=== PATIENT | male | born 1950 | race Caucasian/White ===

== ENCOUNTER 2018-12-24 14:47 | Outpatient (CLI) | payer MEDICARE, BC ==
[2018-12-24 15:29] LABS: BASOPHILS % (AUTO) 0.3 % (0-1); EOSINOPHILS % (AUTO) 0.2 % (0-6); HEMATOCRIT 49.7 % (42.0-52.0); HEMOGLOBIN 16.8 g/dl (14.0-17.9); LYMPHOCYTES # (AUTO) 0.4 X10'3 (1.1-4.8); LYMPHOCYTES % (AUTO) 6.2 % (21-51); MEAN CORPUSCULAR HGB CONC 33.8 g/dL (33.0-36.5); MEAN CORPUSCULAR VOLUME 94.6 FL (78-98); MEAN PLATELET VOLUME 7.2 FL (7.4-10.4); MONOCYTES # (AUTO) 0.1 X10'3 (0-0.9); MONOCYTES % (AUTO) 1.8 % (2-12); NEUTROPHILS # (AUTO) 6.2 X10'3 (1.8-7.7); NEUTROPHILS % (AUTO) 91.5 % (42-75); PLATELET COUNT 201 X10'3 (140-440); RED BLOOD COUNT 5.25 X10'6 (4.70-6.10); RED CELL DISTRIBUTION WIDTH 14.2 % (11.5-14.5); WHITE BLOOD COUNT 6.8 X10'3 (4.5-11.0)
[2018-12-24 15:38] LABS: ALANINE AMINOTRANSFERASE 28 U/L (12-78); ALBUMIN 3.9 G/DL (3.4-5.0); ALKALINE PHOSPHATASE 71 IU/L (46-116); ANION GAP 5 (8-16); ASPARTATE AMINO TRANSFERASE 12 U/L (10-37); BILIRUBIN,TOTAL 0.5 MG/DL (0.1-1.0); BLOOD UREA NITROGEN 13 MG/DL (7-18); BUN/CREATININE RATIO 12.1 (5.4-32.0); CHLORIDE 100 MMOL/L (99-107); CREATININE 1.07 MG/DL (0.60-1.10); GLUCOSE 160 MG/DL (70-104); PARTIAL THROMBOPLASTIN TIME 31 SECONDS (22-32); POTASSIUM 4.4 MMOL/L (3.5-5.1); SODIUM 133 MMOL/L (135-145); TOTAL PROTEIN 7.7 G/DL (6.4-8.2); eGFR 69 ML/MIN
[2018-12-24 18:16] LABS: PLATELET FUNCTION (ADP) 120 SECONDS (63-104)
== END 2018-12-24 23:59 | disposition home or self-care (01) ==
LOC: LAB 14:47
PROVIDERS: ATTEND Otolaryngology
DX: D69.1 Qualitative platelet defects (principal)
CPT/HCPCS: 36415; 80053; 85025; 85576; 85610; 85730

== ENCOUNTER 2019-04-24 08:52 | Outpatient (CLI) | payer BC, MEDICARE ==
[2019-04-24 09:27] LABS: BASOPHILS % (AUTO) 0.6 % (0-1); EOSINOPHILS # (AUTO) 0.1 X10'3 (0-0.9); EOSINOPHILS % (AUTO) 1.7 % (0-6); HEMATOCRIT 49.5 % (42.0-52.0); HEMOGLOBIN 16.9 g/dl (14.0-17.9); LYMPHOCYTES # (AUTO) 1.3 X10'3 (1.1-4.8); LYMPHOCYTES % (AUTO) 22.9 % (21-51); MEAN CORPUSCULAR HEMOGLOBIN 32.7 PG (27.0-31.0); MEAN CORPUSCULAR HGB CONC 34.1 g/dL (33.0-36.5); MEAN CORPUSCULAR VOLUME 95.9 FL (78-98); MONOCYTES # (AUTO) 0.6 X10'3 (0-0.9); MONOCYTES % (AUTO) 10.4 % (2-12); NEUTROPHILS # (AUTO) 3.6 X10'3 (1.8-7.7); NEUTROPHILS % (AUTO) 64.4 % (42-75); PLATELET COUNT 185 X10'3 (140-440); RED BLOOD COUNT 5.16 X10'6 (4.70-6.10); RED CELL DISTRIBUTION WIDTH 13.7 % (11.5-14.5); WHITE BLOOD COUNT 5.5 X10'3 (4.5-11.0)
[2019-04-24 09:39] LABS: PARTIAL THROMBOPLASTIN TIME 28 SECONDS (22-32)
[2019-04-24 09:40] LABS: ALANINE AMINOTRANSFERASE 28 U/L (12-78); ALBUMIN 3.8 G/DL (3.4-5.0); ALBUMIN/GLOBULIN RATIO 1.1 (1.1-1.5); ALKALINE PHOSPHATASE 55 IU/L (46-116); ANION GAP 9 (8-16); ASPARTATE AMINO TRANSFERASE 11 U/L (10-37); BILIRUBIN,TOTAL 0.5 MG/DL (0.1-1.0); BLOOD UREA NITROGEN 11 MG/DL (7-18); BUN/CREATININE RATIO 11.5 (5.4-32.0); CALCIUM 8.7 MG/DL (8.5-10.1); CHLORIDE 107 MMOL/L (99-107); CREATININE 0.96 MG/DL (0.60-1.10); GLUCOSE 102 MG/DL (70-104); POTASSIUM 4.5 MMOL/L (3.5-5.1); SODIUM 143 MMOL/L (135-145); TOTAL PROTEIN 7.2 G/DL (6.4-8.2); eGFR 78 ML/MIN
== END 2019-04-24 23:59 | disposition home or self-care (01) ==
LOC: LAB 08:52
PROVIDERS: ATTEND Otolaryngology
DX: D69.1 Qualitative platelet defects (principal)
CPT/HCPCS: 36415; 80053; 85025; 85576; 85610; 85730

== ENCOUNTER 2019-05-13 08:28 | Day surgery (SDC) | payer BC, MEDICARE ==
[~2019-05-13] VITALS: Ht 188 cm; Wt 90.7 kg
[2019-05-13] VITALS (12 sets, daily range): BP systolic 114–137; BP diastolic 68–86
[~2019-05-13 08:28] MED LIST: BUPIVAcaine/PF 2.5 mg/ml (0.25%) 30ml vial ONE; ceFAZolin 1000mg inj ONE
[2019-05-13] MEDS ORDERED: labetalol 20mg/4ml (5mg/ml) syringe IV PRN (09:20)
[2019-05-13] MEDS ORDERED: ringers solution, lacted 1,000 ML IV SCH (09:20)
[2019-05-13] MEDS ORDERED: fentaNYL/PF 50MCG/1 ML 2ML syringe IV PRN ×2 (09:20)
[2019-05-13] MEDS ORDERED: ondansetron/PF 4mg/2ml inj IV PRN (09:20)
[2019-05-13] MEDS ORDERED: morphine 4 MG/ML inj SYRINge IV PRN ×2 (09:20)
[2019-05-13] MEDS ORDERED: hydrALAZINE 20mg/ml inj. IV PRN (09:20)
[2019-05-13] MEDS ORDERED: CLINDAMYCIN/D5W 900mg/50ml 50 ML IV ONE (09:35)
[2019-05-13 10:10] LABS: BASOPHILS % (AUTO) 0.7 % (0-1); EOSINOPHILS # (AUTO) 0.1 X10'3 (0-0.9); EOSINOPHILS % (AUTO) 1.4 % (0-6); LYMPHOCYTES # (AUTO) 1.3 X10'3 (1.1-4.8); LYMPHOCYTES % (AUTO) 23.2 % (21-51); MEAN CORPUSCULAR HEMOGLOBIN 32.1 PG (27.0-31.0); MEAN CORPUSCULAR HGB CONC 33.9 g/dL (33.0-36.5); MEAN CORPUSCULAR VOLUME 94.9 FL (78-98); MONOCYTES # (AUTO) 0.6 X10'3 (0-0.9); MONOCYTES % (AUTO) 11.2 % (2-12); NEUTROPHILS # (AUTO) 3.5 X10'3 (1.8-7.7); NEUTROPHILS % (AUTO) 63.5 % (42-75); PRE OP HEMATOCRIT 45.8 % (42.0-52.0); PRE OP HEMOGLOBIN 15.5 g/dL (14.0-17.9); PRE OP PLATELET COUNT 176 X10'3 (140-440); RED BLOOD COUNT 4.83 X10'6 (4.70-6.10); RED CELL DISTRIBUTION WIDTH 13.4 % (11.5-14.5)
[2019-05-13] MEDS ORDERED: FINA5TAB11 PO (10:14)
[2019-05-13] MEDS ORDERED: CITA20TA19 PO (10:14)
[2019-05-13 10:28] LABS: ALBUMIN 3.7 G/DL (3.4-5.0); ALKALINE PHOSPHATASE 54 IU/L (46-116); BLOOD UREA NITROGEN 14 MG/DL (7-18); BUN/CREATININE RATIO 15.4 (5.4-32.0); CALCIUM 8.7 MG/DL (8.5-10.1); CHLORIDE 108 MMOL/L (99-107); CREATININE 0.91 MG/DL (0.60-1.10); PRE OP ALT 29 U/L (30-65); PRE OP ANION GAP 8 (8-16); PRE OP AST 20 U/L (10-37); PRE OP BILIRUB, TOTAL 0.7 MG/DL (0.0-1.0); PRE OP GLUCOSE 103 MG/DL (70-104); PRE OP POTASSIUM 4.3 MMOL/L (3.4-5.1); PRE OP SODIUM 141 MMOL/L (135-145); TOTAL CARBON DIOXIDE 25.4 MMOL/L (24-32); TOTAL PROTEIN 7.3 G/DL (6.4-8.2); eGFR 83 ML/MIN
[2019-05-13] MEDS ORDERED: LIDOcaine 2% (20mg/ml) 5ml vial ONE (12:39)
[2019-05-13] MEDS ORDERED: propofol inj 20 ML IV ONE (12:39)
[2019-05-13] MEDS ORDERED: rocuronium 10mg/ml inj IV ONE (13:17)
[2019-05-13] MEDS ORDERED: neostigmine methylsulfate 1 MG/ML 10ml vial ONE (13:17)
[2019-05-13] MEDS ORDERED: sevoflurane 250ml liquid IH ONE (13:17)
[2019-05-13] MEDS ORDERED: ondansetron/PF 4mg/2ml inj ONE (13:17)
[2019-05-13] MEDS ORDERED: glycopyrrolate 0.2mg/ml inj ONE (13:17)
[2019-05-13] MEDS ORDERED: dexamethasone sod phosphate 10mg/ml inj ONE (13:17)
[2019-05-13] MEDS ORDERED: midazolam 2 mg/2 ml injection ONE (13:23)
[2019-05-13] MEDS ORDERED: fentaNYL/PF 50MCG/1 ML 2ML syringe ONE (13:23)
[2019-05-13] MEDS ORDERED: ketorolac trometh. 30mg/ml inj. ONE (14:25)
--- NOTE | 2019-05-13 14:38 | NUR ---
Received from OR via TE, accompanied by Anesthesiologist DR ADHIKARI and report given by Anesthesiologist. PT DROWSY, NO S/SO OF DISTRESS/DISCOMFORT, ABDOMEN W/2 LAP SITES W/BANDAIDS CDI. Addendum: 05/13/19 at 1508 by Arianna Napier RN Amended: Links added.
[2019-05-13] MEDS ORDERED: HYDROcodone/acetaminophen 10/325mg tab PO ONE (16:20)
--- NOTE | 2019-05-13 16:48 | NUR ---
PT AWAKE, UP TO BATHROOM FOR VOID, D/C INSTRUCTIONS GIVEN AND GONE OVER W/PT AND PTS , BOTH VERBALIZE UNDERSTANDING, PT D/CD TO HOME VIA W/C TO PRIVATE VEHICLE W/O INCIDENT. Addendum: 05/13/19 at 1746 by Arianna Napier RN Amended: Links added.
[2019-05-14] MEDS ORDERED: ringers solution, lacted 1,000 ML IV SCH (05:00)
[2019-05-14] MEDS ORDERED: famotidine 20mg tablet PO ONE (05:30)
== END 2019-05-13 16:48 | disposition home or self-care (01) ==
LOC: PAS 08:28
PROVIDERS: ATTEND Surgery
DX: K40.20 Bilateral inguinal hernia, without obstruction or gangrene, not specified as recurrent (principal); Z88.0 Allergy status to penicillin; Z98.890 Other specified postprocedural states; Z87.891 Personal history of nicotine dependence; Z79.899 Other long term (current) drug therapy
CPT/HCPCS: 36415; 49650; 80053; 85025; 93005; C1781; J0690; J1100; J1885; J2001; J2250; J2405; J2704; J2710; J3010; J3490; A4215; A4314; A4618; A6258; J7120